=== PATIENT | male | born 1945 | race Caucasian/White ===

== ENCOUNTER 2016-03-07 05:41 | Emergency (ER) | payer MEDICARE, BC ==
[~2016-03-07] VITALS: Ht 185.4 cm; Wt 80.9 kg
[~2016-03-07 05:41] MED LIST: ASPIRIN E.C. 8181 MG PO; BIOFLAX1000 MG PO; CARDIZEM CD 12120 MG PO; CARDIZEM CD 18180 MG PO; CARTIA XT120 MG PO; CIPRO 500MG TA500 MG PO; CO Q-10 100 MG-1 SGL PO; EPA FISH OIL1000 MG PO; FLECAINIDE150 MG PO; LEVITRA20 MG PO; LISINOPRIL40 MG PO; MULTIPLE VITAMI1 CAP PO; OMEGA 31000 MG PO
[2016-03-07] MEDS ORDERED: TAMBOCOR150 MG (06:05)
[2016-03-07] MEDS ORDERED: MULTI VITAMINS1 TAB PO (06:05)
[2016-03-07 06:34] LABS: BASO # 0.1 (0.0-0.2); BASO % 0.8 % (0.0-2.0); EOS # 0.1 (0.0-0.7); EOS % 0.9 % (0-4.0); GRAN # 5.7 (1.4-6.5); GRAN % 74.2 % (42.2-75.2); HEMATOCRIT 44.5 % (42.0-52.0); LYMPH # 1.1 (1.2-3.4); LYMPH % 14.5 % (20.0-51.0); MEAN CELL VOLUME 94 fl (80.0-100.0); MEAN CORPUSCULAR HEMOGLOBIN 34 pg (27.0-31.0); MEAN CORPUSCULAR HGB CONC 36 g/dl (33.0-37.0); MEAN PLATELET VOLUME 9.7 fl (7.4-10.4); MONO # 0.7 (0.1-0.6); MONO % 9.2 % (1.7-9.3); PLATELET COUNT 269 K/mm3 (130-400); RED BLOOD COUNT 4.76 M/mm3 (4.20-5.60); REDCELL DISTRIBUTION WIDTH-CV 11.8 % (11.5-14.5); WHITE BLOOD COUNT 7.7 K/mm3 (4.8-10.8)
[2016-03-07 06:35] LABS: PROTHROMBIN TIME 10.7 SECONDS (9.7-12.8)
[2016-03-07 06:41] LABS: ADJUSTED CALCIUM 8.9 mg/dL (8.4-10.2); ALANINE AMINOTRANSFERASE 39 U/L (21-72); ALBUMIN 4.3 gm/dL (3.5-5.0); ALKALINE PHOSPHATASE 84 U/L (50-136); ANION GAP 14 mmol/L (7-16); BILIRUBIN,TOTAL 1.8 mg/dL (0.0-1.0); BLOOD UREA NITROGEN 11 mg/dL (9-20); CALCIUM 9.1 mg/dL (8.4-10.2); CARBON DIOXIDE 25 mmol/L (22-30); CHLORIDE 94 mmol/L (98-107); CREATININE, serum 0.75 mg/dL (0.66-1.25); GLUCOSE 127 mg/dL (74-106); POTASSIUM 3.1 mmol/L (3.4-5.0); SODIUM 133 mmol/L (137-145); TOTAL PROTEIN 7.7 gm/dL (6.4-8.2)
[2016-03-07 06:49] LABS: B-TYPE NATRIURETIC PEPTIDE 1340 pg/mL (0-125)
[2016-03-07 06:56] LABS: TROPONIN-I < 0.012 ng/mL (0.000-0.034)
[2016-03-07] MEDS ORDERED: CARDIZEM CD 24240 MG PO (07:15)
[2016-03-07 07:48] VITALS: BP 147/99; PULSE 93; TEMP 98.6
== END 2016-03-07 07:48 | disposition home or self-care (01) ==
LOC: COL.ER 05:41
PROVIDERS: Emergency Medicine
DX: I48.91 Unspecified atrial fibrillation (principal); I49.8 Other specified cardiac arrhythmias; I10 Essential (primary) hypertension

== ENCOUNTER 2016-03-17 01:58 | Emergency (ER) | payer MEDICARE, BC ==
[~2016-03-17] VITALS: Ht 185.4 cm; Wt 80.9 kg
[~2016-03-17 01:58] MED LIST changes: +CARDIZEM CD 24240 MG PO; +MULTI VITAMINS1 TAB PO; +TAMBOCOR150 MG
[2016-03-17 02:05] VITALS: TEMP 98
[2016-03-17] MEDS ORDERED: ASPIRIN 32325 MG/TAB PO (02:10)
[2016-03-17 02:17] LABS: BASO # 0.1 (0.0-0.2); BASO % 0.9 % (0.0-2.0); EOS # 0.1 (0.0-0.7); EOS % 1.4 % (0-4.0); GRAN # 6.7 (1.4-6.5); GRAN % 74.7 % (42.2-75.2); HEMATOCRIT 46.2 % (42.0-52.0); HEMOGLOBIN 16.9 g/dl (13.5-18.0); LYMPH # 1.3 (1.2-3.4); LYMPH % 14.2 % (20.0-51.0); MEAN CELL VOLUME 92 fl (80.0-100.0); MEAN CORPUSCULAR HEMOGLOBIN 34 pg (27.0-31.0); MEAN CORPUSCULAR HGB CONC 37 g/dl (33.0-37.0); MEAN PLATELET VOLUME 9.3 fl (7.4-10.4); MONO # 0.8 (0.1-0.6); MONO % 8.5 % (1.7-9.3); PLATELET COUNT 261 K/mm3 (130-400); RED BLOOD COUNT 5.01 M/mm3 (4.20-5.60); REDCELL DISTRIBUTION WIDTH-CV 11.9 % (11.5-14.5)
[2016-03-17 02:23] LABS: INR 0.9 (0.8-3.0); PROTHROMBIN TIME 10.4 SECONDS (9.7-12.8)
[2016-03-17 02:25] LABS: PARTIAL THROMBOPLASTIN TIME 22.7 SECONDS (26.0-37.0)
[2016-03-17 02:27] LABS: ADJUSTED CALCIUM 9.1 mg/dL (8.4-10.2); ALANINE AMINOTRANSFERASE 53 U/L (21-72); ALBUMIN 4.8 gm/dL (3.5-5.0); ALKALINE PHOSPHATASE 86 U/L (50-136); ANION GAP 15 mmol/L (7-16); BILIRUBIN,TOTAL 2.5 mg/dL (0.0-1.0); BLOOD UREA NITROGEN 13 mg/dL (9-20); CALCIUM 9.7 mg/dL (8.4-10.2); CARBON DIOXIDE 24 mmol/L (22-30); CHLORIDE 97 mmol/L (98-107); CREATININE, serum 0.77 mg/dL (0.66-1.25); GLUCOSE 109 mg/dL (74-106); POTASSIUM 3.1 mmol/L (3.4-5.0); SODIUM 136 mmol/L (137-145); TOTAL PROTEIN 8.3 gm/dL (6.4-8.2)
[2016-03-17 02:39] LABS: TROPONIN-I < 0.012 ng/mL (0.000-0.034)
[2016-03-17] MEDS ORDERED: CARDIZEM CD 24240 MG PO (03:00)
[2016-03-17] MEDS ORDERED: COENZYME Q-1030 MG PO (03:01)
[2016-03-17] MEDS ORDERED: TAMBOCOR150 MG PO (03:07)
[2016-03-17 03:15] VITALS: BP 149/97; PULSE 75
[2016-03-17] MEDS ORDERED: K-DUR 10 MEQ T10 MEQ PO (03:19)
[2016-03-17] MEDS ORDERED: ATIVAN 1MG T1 MG/TAB PO (03:19)
== END 2016-03-17 03:35 | disposition home or self-care (01) ==
LOC: COL.ER 01:58
PROVIDERS: Emergency Medicine
DX: I48.0 Paroxysmal atrial fibrillation (principal); I10 Essential (primary) hypertension; E87.6 Hypokalemia

== ENCOUNTER → 2016-04-05 | Outpatient (CLI) | payer MEDICARE, BC ==
[~2016-04-05] MED LIST changes: +ASPIRIN 32325 MG/TAB PO; +ATIVAN 1MG T1 MG/TAB PO; +COENZYME Q-1030 MG PO; +EPA FISH OIL1 SGL PO; +K-DUR 10 MEQ T10 MEQ PO; +KLOR-CON 1010 MEQ PO; +NORCO 325 MG-51 TAB PO; +TAMBOCOR150 MG PO; +THE MEDICINE S200 M2 PO
== END ==
LOC: COL.VAS 08:36
DX: I35.1 Nonrheumatic aortic (valve) insufficiency (principal); I48.0 Paroxysmal atrial fibrillation

== ENCOUNTER 2016-04-24 07:23 | Day surgery (SDC) | payer MEDICARE, BC ==
[~2016-04-24] VITALS: Ht 185.4 cm; Wt 78.7 kg
[~2016-04-24 07:23] MED LIST changes: -EPA FISH OIL1 SGL PO; -KLOR-CON 1010 MEQ PO; -NORCO 325 MG-51 TAB PO; -THE MEDICINE S200 M2 PO
[2016-04-24 08:09] VITALS: BP 164/90; PULSE 77; TEMP 97.4
== END 2016-04-24 12:30 | disposition home or self-care (01) ==
LOC: SDCO 07:23
DX: K40.90 Unilateral inguinal hernia, without obstruction or gangrene, not specified as recurrent (principal); Z53.20 Procedure and treatment not carried out because of patient's decision for unspecified reasons; E87.6 Hypokalemia
CPT/HCPCS: J0330; J2704; J3010; J7120

== ENCOUNTER → 2016-08-15 | Outpatient (REF) ==
[~2016-08-15] MED LIST changes: +EPA FISH OIL1 SGL PO; +KLOR-CON 1010 MEQ PO; +NORCO 325 MG-51 TAB PO; +THE MEDICINE S200 M2 PO
== END ==
LOC: ZLAB.WCH 10:25
DX: Z01.89 Encounter for other specified special examinations (principal)
CPT/HCPCS: G0103

== ENCOUNTER 2016-10-23 07:16 | Inpatient (IN) | payer MEDICARE, BC ==
[~2016-10-23] VITALS: Ht 185.4 cm; Wt 80.6 kg
[2016-10-23] VITALS (14 sets, daily range): BP systolic 99–154; BP diastolic 42–89; PULSE 69–86; TEMP 98–98.6
[~2016-10-23 07:16] MED LIST changes: -EPA FISH OIL1 SGL PO; -KLOR-CON 1010 MEQ PO; -NORCO 325 MG-51 TAB PO; -THE MEDICINE S200 M2 PO
[2016-10-23] MEDS ORDERED: THE MEDICINE S200 M2 PO ×2 (08:39→08:40)
[2016-10-23] MEDS ORDERED: CARDIZEM CD 24240 MG PO (08:43)
[2016-10-23] MEDS ORDERED: ATIVAN 1MG T1 MG/TAB PO (08:45)
[2016-10-23] MEDS ORDERED: KLOR-CON 1010 MEQ PO (08:46)
[2016-10-23] MEDS ORDERED: LEVITRA20 MG PO (08:47)
[2016-10-23] MEDS ORDERED: MULTI VITAMINS1 TAB PO (08:49)
[2016-10-23] MEDS ORDERED: EPA FISH OIL1 SGL PO (08:49)
[2016-10-23] MEDS ORDERED: NORCO 325 MG-51 TAB PO (13:10)
[2016-10-24] VITALS (13 sets, daily range): BP systolic 106–158; BP diastolic 60–90; PULSE 67–86; TEMP 97.6–98.2
[2016-10-25 03:21] VITALS: BP 145/79; PULSE 78; TEMP 97.7
[2016-10-25 06:25] VITALS: BP 145/76; PULSE 72; TEMP 97.7
[2016-10-25 09:27] VITALS: BP 151/76; PULSE 69; TEMP 98.4
[2016-10-25 13:42] VITALS: BP 167/77; PULSE 75; TEMP 97.7
== END 2016-10-25 17:15 | disposition home or self-care (01) | DRG 664 ==
LOC: SDCO 07:16 → SURG 07:16 → SDCO 09:30 → SURG 14:01 → SDCO 10-24 13:00 → SURG 10-25 17:15
PROVIDERS: Urology
PROC: 0YU64JZ Supplement Left Inguinal Region with Synthetic Substitute, Percutaneous Endoscopic Approach (ICD-10-PCS; 2016-10-23)
PROC: 8E0W4CZ Robotic Assisted Procedure of Trunk Region, Percutaneous Endoscopic Approach (ICD-10-PCS; 2016-10-23)
PROC: 0T9C80Z Drainage of Bladder Neck with Drainage Device, Via Natural or Artificial Opening Endoscopic (ICD-10-PCS; 2016-10-23)
PROC: 0TCC8ZZ Extirpation of Matter from Bladder Neck, Via Natural or Artificial Opening Endoscopic (ICD-10-PCS; 2016-10-24)
PROC: 0TBB8ZZ Excision of Bladder, Via Natural or Artificial Opening Endoscopic (ICD-10-PCS; 2016-10-24)
PROC: 0VB Male Reproductive System, Excision (ICD-10-PCS; 2016-10-24)
PROC: 0VB08ZZ Excision of Prostate, Via Natural or Artificial Opening Endoscopic (ICD-10-PCS; principal; 2016-10-24 14:15)
PROC: 0TC Urinary System, Extirpation (ICD-10-PCS; 2016-10-24 14:15)
DX: N32.0 Bladder-neck obstruction (principal); N40.1 Benign prostatic hyperplasia with lower urinary tract symptoms; K40.90 Unilateral inguinal hernia, without obstruction or gangrene, not specified as recurrent; D17.6 Benign lipomatous neoplasm of spermatic cord; N21.0 Calculus in bladder; N35.9 Urethral stricture, unspecified
CPT/HCPCS: OP; A4315; C1769; C1781; J0360; J0690; J1100; J1170; J2405; J2704; J2710; J3010; J3480; J7120

== ENCOUNTER → 2018-06-03 | Outpatient (REF) ==
[~2018-06-03] MED LIST changes: +EPA FISH OIL1 SGL PO; +KLOR-CON 1010 MEQ PO; +NORCO 325 MG-51 TAB PO; +THE MEDICINE S200 M2 PO
[2018-06-03 17:09] LABS: PSA-TOTAL 0.45 ng/mL (0-4)
[2018-06-03 18:07] LABS: THYROID STIMULATING HORMONE 0.412 uIU/mL (0.465-4.680)
== END ==
LOC: ZLAB.WCH 16:10
PROVIDERS: Physician Assistant
DX: Z01.89 Encounter for other specified special examinations (principal)
CPT/HCPCS: G0103

== ENCOUNTER → 2020-02-22 | Outpatient (REF) ==
[2020-02-22 21:56] LABS: CLOSTRIDIUM DIFF A/B NEG; CLOSTRIDIUM DIFF A/B INTERP No C.diff present
== END ==
LOC: ZLAB.WCH 20:02
PROVIDERS: Physician Assistant
DX: Z01.89 Encounter for other specified special examinations (principal)